=== PATIENT | male | born 1960 ===

== ENCOUNTER 2023-12-02 14:43 | Emergency (ER) | payer SELFPAY ==
[~2023-12-02] VITALS: Ht 175.3 cm; Wt 79.4 kg
== END 2023-12-02 15:30 | disposition left against medical advice (07) ==
LOC: ER 14:43
DX: G89.29 Other chronic pain (principal); M54.9 Dorsalgia, unspecified; F10.129 Alcohol abuse with intoxication, unspecified
CPT/HCPCS: 99283